=== PATIENT | male | born 1990 ===

== ENCOUNTER 2018-02-24 02:19 | Emergency (ER) | payer OTHER ==
[2018-02-24 02:23] VITALS: BMI 32.1
[2018-02-24] MEDS ORDERED: TDAP Vaccine 0.5 mL Syr IM ONE (02:43)
--- NOTE | 2018-02-24 02:51 | ED PDOC ---
Arrival/HPI - General Chief Complaint: Upper Extremity Problem/Injury Time Seen by Provider: 02/24/18 02:21 Historian: Patient - History of Present Illness Narrative History of Present Illness (Text): 02/24/18 02:47 27 year old male, whose past medical history includes IDDM, presents to the emergency department for evaluation status post right elbow injury. The patient states he was walking up the stairs to his apartment when he tripped and fell backwards. He recalls hitting the back of his head, but states his right elbow took the brunt of the fall, sustaining a laceration. He openly admits to drinking some alcohol tonight. He denies any other evidence of bleeding besides his elbow. Patient denies any chest pain, shortness of breath, neck pain, abdominal pain, or any other complaints. Time/Duration: Prior to Arrival Symptom Onset: Sudden Quality: Aching Context: Walking Past Medical History - Provider Review Nursing Documentation Reviewed: Yes - Travel History Have you recently traveled outside [place] w/in the past 3 mons?: No - Psychiatric Hx Psychophysiologic Disorder: No Hx Substance Use: No - Anesthesia Hx Anesthesia: No Family/Social History - Physician Review Nursing Documentation Reviewed: Yes Family/Social History: No Known Family HX Smoking Status: Never Smoked Hx Alcohol Use: No Hx Substance Use: No Allergies/Home Meds Allergies/Adverse Reactions: Allergies No Known Allergies Allergy (Verified 02/24/18 02:25) Home Medications: Home Meds Medication Instructions Recorded Confirmed RX: No Known Home Med 02/24/18 02/24/18 Review of Systems - Physician Review All systems were reviewed & negative as marked: Yes - Review of Systems Respiratory: absent: SOB Cardiovascular: absent: Chest Pain Gastrointestinal: absent: Abdominal Pain Musculoskeletal: Arthralgias (Left elbow pain). absent: Neck Pain Physical Exam Vital Signs Reviewed: Yes Temperature: Afebrile Blood Pressure: Hypertensive Pulse: Regular Respiratory Rate: Normal Appearance: Positive for: Well-Appearing, Non-Toxic, Comfortable Pain Distress: None Mental Status: Positive for: Alert and Oriented X 3 - Systems Exam Head: Present: Atraumatic, Normocephalic Pupils: Present: PERRL Extroacular Muscles: Present: EOMI Conjunctiva: Present: Normal Mouth: Present: Moist Mucous Membranes Neck: Present: Normal Range of Motion Respiratory/Chest: Present: Clear to Auscultation, Good Air Exchange. No: Respiratory Distress, Accessory Muscle Use Cardiovascular: Present: Regular Rate and Rhythm, Normal S1, S2. No: Murmurs Abdomen: No: Tenderness, Distention, Peritoneal Signs Back: Present: Normal Inspection Upper Extremity: Present: Normal Inspection, Capillary Refill < 2s, Other (Skin avulsion tear noted to R elbow). No: Cyanosis, Edema Lower Extremity: Present: Normal Inspection. No: Edema Neurological: Present: GCS=15, CN II-XII Intact, Speech Normal Skin: Present: Warm, Dry, Normal Color, Other (skin avulsion tear to the right elbow). No: Rashes Psychiatric: Present: Alert, Oriented x 3, Normal Insight, Normal Concentration Medical Decision Making ED Course and Treatment: 02/24/18 02:56 Impression: 27 year old male presents with elbow pain status post fall Differential Diagnoses Includes But Is Not Limited To: --Intracranial hemorrhage --Elbow fracture --Elbow dislocation Plan: -- CT Head -- X-ray right elbow --Dermabond -- TDAP vaccine -- Reassess and disposition Prior Visits: Patient has not previously been seen at this emergency department. Progress Notes: 02/24/18 04:15 CTH negative for intracranial hemorrhage or calavarial fractures. XR R elbow shows no evidence of dislocation or fracture. Dermabond applied to skin avulsion tear. Patient is clinically sober and able to ambulate unassisted around unit with no evidence of tremulousness. He is stable for discharge. - RAD Interpretation Radiology Orders: 02/24/18 02:43 ELBOW RIGHT 3 VIEWS ROUTINE [RAD] Stat 02/24/18 02:44 HEAD W/O CONTRAST [CT] Stat - Medication Orders Current Medication Orders: Tetanus/Reduced Diphtheria/Acell Pertussis (Boostrix Vaccine Inj) 0.5 ml IM .ONCE ONE Stop: 02/24/18 02:44 - Scribe Statement The provider has reviewed the documentation as recorded by the Marcia Oconnell Provider Scribe Attestation: All medical record entries made by the Scribe were at my direction and personally dictated by me. I have reviewed the chart and agree that the record accurately reflects my personal performance of the history, physical exam, medical decision making, and the department course for this patient. I have also personally directed, reviewed, and agree with the discharge instructions and disposition. Disposition/Present on Arrival - Present on Arrival Any Indicators Present on Arrival: No History of DVT/PE: No History of Uncontrolled Diabetes: No Urinary Catheter: No History of Decub. Ulcer: No History Surgical Site Infection Following: None - Disposition Have Diagnosis and Disposition been Completed?: Yes Diagnosis: Fall, Alcohol abuse, Elbow abrasion Disposition: HOME/ ROUTINE Disposition Time: 04:20 Patient Plan: Discharge Condition: STABLE Discharge Instructions (ExitCare): Alcohol Abuse and Alcoholism (DC), Skin Abrasions (DC) Print Language: THAI Additional Instructions: All medical record entries made by the Scribe were at my direction and personally dictated by me. I have reviewed the chart and agree that the record accurately reflects my personal performance of the history, physical exam, medical decision making, and the department course for this patient. I have also personally directed, reviewed, and agree with the discharge instructions and disposition. Referrals: Rhiannon Medina DO [[facility]] - Follow up with primary Forms: [employer] (Albanian)
[2018-02-24 02:54] VITALS: TEMP 98
[2018-02-24 04:39] VITALS: BP 142/89; PULSE 78; RESP 19; O2SAT 97
--- NOTE | 2018-02-24 08:42 | CT ---
Date of service: 02/24/2018 PROCEDURE: CT HEAD WITHOUT CONTRAST. HISTORY: headache COMPARISON: None available. TECHNIQUE: Axial computed tomography images were obtained through the head/brain without intravenous contrast. Radiation dose: Total exam DLP = 920.21 mGy-cm. This CT exam was performed using one or more of the following dose reduction techniques: Automated exposure control, adjustment of the mA and/or kV according to patient size, and/or use of iterative reconstruction technique. FINDINGS: HEMORRHAGE: No intracranial hemorrhage. BRAIN: No mass effect or edema. No atrophy or chronic microvascular ischemic changes. VENTRICLES: Unremarkable. No hydrocephalus. CALVARIUM: Unremarkable. PARANASAL SINUSES: Unremarkable as visualized. No significant inflammatory changes. MASTOID AIR CELLS: Unremarkable as visualized. No inflammatory changes. OTHER FINDINGS: The report concurs with the preliminary [facility] report IMPRESSION: No acute findings
--- NOTE | 2018-02-24 11:26 | RAD ---
Date of service: 02/24/2018 PROCEDURE: Radiographs of the right elbow. HISTORY: s/p w/ elbow laceration pain COMPARISON: No prior. FINDINGS: BONES: Normal. No fracture. JOINTS: Normal. No osteoarthritis. SOFT TISSUES: Minimal air can be seen within the soft tissues adjacent to the olecranon JOINT EFFUSION: None. OTHER FINDINGS: None. IMPRESSION: No evidence of fracture or foreign body
== END 2018-02-24 04:32 | disposition home or self-care (01) ==
LOC: ED 02:19
DX: S50.311A Abrasion of right elbow, initial encounter (principal); W10.9XXA Fall (on) (from) unspecified stairs and steps, initial encounter; Y92.009 Unspecified place in unspecified non-institutional (private) residence as the place of occurrence of the external cause; F10.10 Alcohol abuse, uncomplicated; Z23 Encounter for immunization